=== PATIENT | female | born 1945 | race Caucasian/White ===

== ENCOUNTER 2017-04-21 11:15 | Emergency (ER) | payer MEDICARE ==
[2017-04-21 11:24] VITALS: BP 132/89
[2017-04-21] MEDS ORDERED: PROPARACAINE 0.5% OPHTH DROPS 15 ML EACHEYE STA (12:33)
[2017-04-21] MEDS ORDERED: PROPARACAINE 0.5% OPHTH DROPS 15 ML ONE (12:42)
--- NOTE | 2017-04-21 13:10 | ED Physician Documentation ---
PD HPI HEENT - Stated complaint Stated Complaint: L EYE PX - Chief complaint Chief Complaint: Heent - History obtained from History obtained from: Patient, Family - History of Present Illness Timing - onset: Last night Timing - duration: Days (1) Timing - details: Gradual onset Pain level max: 3 Pain level now: 3 Location: Other (L eye) Improves: Nothing Worsens: Other (light) Associated symptoms: No: Fever, Congestion, Rhinorrhea, Trismus, Unable to swallow, Swollen nodes, Facial swelling - Additional information Additional information: states hit in the L eye with debris under a ladder yesterday. Does not wear contact lenses. 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 HEENT: Cataracts - Present Medications Home Medications: Ambulatory Orders Medication Instructions Recorded Confirmed No Known Home Medications [No 04/21/17 04/21/17 Known Home Medications] - Allergies Allergies/Adverse Reactions: Allergies Allergy/AdvReac Type Severity Reaction Status Date / Time Penicillins Allergy Unknown Verified 04/21/17 11:24 - Social History Does the pt smoke?: No Smoking Status: Never smoker PD ED PE NORMAL - Vitals Vital signs reviewed: Yes - General General: Alert and oriented X 3, No acute distress - Derm Derm: Warm and dry - Neuro Neuro: Alert and oriented X 3 - Psych Psych: Normal mood, Normal affect PD ED PE EXPANDED - HEENT HEENT Visual: 1 - abrasion (punctace fluoroscein uptake. otherwise normal exam.) Results - Vitals Vitals: Vital Signs - 24 hr 04/21/17 11:22 Temperature 36.2 C L Heart Rate 71 Respiratory 17 Rate Blood Pressure 132/89 H O2 Saturation 98 Oxygen O2 Source Room air PD MEDICAL DECISION MAKING - ED course Complexity details: considered differential, d/w patient ED course: Patient is a 71-year-old female presents to the emergency department with a left eye corneal abrasion. She is currently on Polytrim ophthalmic for her preop for cataract surgery, will increase this to 1 drop every 3 hours while awake. 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 Patient counseled regarding signs and symptoms for which I believe and urgent re-evaluation would be necessary. Patient with good understanding of and agreement to plan and is comfortable going home at this time This document was made in part using voice recognition software. While efforts are made to proofread this document, sound alike and grammatical errors may occur. Departure - Departure Disposition: 01 Home, Self Care Clinical Impression: Corneal abrasion Qualifiers: Encounter type: initial encounter Laterality: left Qualified Code(s): S05.02XA - Injury of conjunctiva and corneal abrasion without foreign body, left eye, initial encounter Condition: Good Instructions: ED Eye Injury Corneal Abrasion Follow-Up: Leonela Villela MD [Primary Care Provider] - Comments: Follow up with Dr. Moran's office tomorrow to find out about your surgery. Increase the polytrim to 1 drop every 3 hours while awake. Return if you worsen.
== END 2017-04-21 13:31 | disposition home or self-care (01) ==
LOC: ED 11:15
DX: S05.02XA Injury of conjunctiva and corneal abrasion without foreign body, left eye, initial encounter (principal); X58.XXXA Exposure to other specified factors, initial encounter
CPT/HCPCS: 99283; J3490

== ENCOUNTER 2019-01-12 13:16 | Emergency (ER) | payer MEDICARE ==
[2019-01-12 13:46] LABS: BASOPHILS # (AUTO) 0.1 10^3/uL (0.0-0.1); BASOPHILS % (AUTO) 0.6 %; EOSINOPHILS # (AUTO) 0.3 10^3/uL (0.0-0.7); EOSINOPHILS % (AUTO) 2.1 %; HGB - HEMOGLOBIN 14.1 g/dL (12.0-16.0); LYMPHOCYTES # (AUTO) 1.4 10^3/uL (1.5-3.5); LYMPHOCYTES % (AUTO) 8.5 %; MEAN CORPUSCULAR HGB CONC 32.1 g/dL (32.0-36.0); MEAN CORPUSCULAR VOLUME 99.8 fL (81.0-99.0); MEAN PLATELET VOLUME 9.6 fL (7.9-10.8); MONOCYTES # (AUTO) 1.2 10^3/uL (0.0-1.0); MONOCYTES % (AUTO) 7.8 %; NEUTROPHILS # (AUTO) 12.7 10^3/uL (1.5-6.6); NEUTROPHILS % (AUTO) 80.4 %; PLT - PLATELET COUNT 377 10^3/uL (130-450); RED CELL DISTRIBUTION WIDTH 13.2 % (12.0-15.0); WHITE BLOOD COUNT 15.9 x10^3/uL (4.8-10.8)
[2019-01-12 13:59] LABS: ALBUMIN 4.1 g/dL (3.2-5.5); BILIRUBIN,TOTAL 0.5 mg/dL (0.2-1.0); CALCIUM 10.1 mg/dL (8.5-10.3); CREATININE 0.8 mg/dL (0.4-1.0); TOTAL PROTEIN 8.3 g/dL (6.7-8.2)
--- NOTE | 2019-01-12 14:02 | XRAY Report ---
Reason: chest pain Procedure Date: 01/12/2019 Accession Number: [id number] / [id number] Procedure: XR - Chest 1 View X-Ray CPT Code: 57530 FULL RESULT: EXAM: CHEST RADIOGRAPHY EXAM DATE: 01/12/2019 01:47 PM. CLINICAL HISTORY: Chest pain. Shortness of breath. COMPARISON: None. TECHNIQUE: 1 view. FINDINGS: Lungs/Pleura: No focal consolidation evident. There is mild diffuse bilateral interstitial prominence. There is an 11 mm nodular opacity in the right suprahilar region projecting over the right posterior seventh rib. No pleural effusion. No pneumothorax. Mediastinum: Within exam limitations, the cardiomediastinal contour is normal. There is a moderate hiatal hernia with an air-fluid level. Other: No acute osseous abnormality. IMPRESSION: 1. Mild diffuse bilateral interstitial prominence may be due to mild interstitial edema and/or chronic lung changes. 2. There is a moderate hiatal hernia with an air-fluid level. 3. There is an 11 mm nodular opacity projecting over the right suprahilar region. This may represent a pulmonary nodule or artifact from superimposition of vascular structures, interstitial opacities, and a posterior rib. Recommend follow-up with noncontrast CT of the chest for further evaluation. [facility]
--- NOTE | 2019-01-12 14:15 | ED Physician Documentation ---
History of Present Illness - Stated complaint Stated Complaint: CHEST PX - Chief complaint Chief Complaint: Cardiac - History obtained from History obtained from: Patient - History of Present Illness Timing: Yesterday - Additonal information Additional information: Patient is a 73-year-old female presenting with upper back and chest discomfort that began yesterday after heavy lifting. Patient reports soreness, particularly with movement. She denies other significant chest pain, pleuritic chest pain, but does feel that she is having difficulty taking a big breath.Patient denies productive cough, fever, lightheadedness, dizziness, syncope, as well as nausea, vomiting, abdominal pain, urinary changes, stool changes, recent travel, or significant leg swelling or pain. Patient does take a baby aspirin daily. No other improving or worsening factors noted. Review of Systems Constitutional: denies: Fever Cardiac: reports: Chest pain / pressure. denies: Pedal edema, Calf pain Respiratory: reports: Dyspnea. 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 HEENT: Cataracts - Present Medications Home Medications: Ambulatory Orders Medication Instructions Recorded Confirmed No Known Home Medications 04/21/17 04/21/17 - Allergies Allergies/Adverse Reactions: Allergies Allergy/AdvReac Type Severity Reaction Status Date / Time Penicillins Allergy Unknown Verified 01/12/19 13:23 - Social History Does the pt smoke?: No Smoking Status: Never smoker PD ED PE NORMAL - Vitals Vital signs reviewed: Yes - General General: Alert and oriented X 3, No acute distress, Well developed/nourished - HEENT HEENT: Atraumatic, Moist mucous membranes - Neck Neck: Supple, no meningeal sign - Cardiac Cardiac: RRR, No murmur - Respiratory Respiratory: No respiratory distress, Clear bilaterally - Abdomen Abdomen: Soft, Non tender, Non distended - Derm Derm: Normal color, Warm and dry, No rash - Extremities Extremities: No deformity, No tenderness to palpate, No edema - Neuro Neuro: Alert and oriented X 3, No motor deficit, No sensory deficit - Psych Psych: Normal mood, Normal affect Results - Vitals Vitals: Vital Signs - 24 hr 01/12/19 01/12/19 01/12/19 13:21 14:47 14:51 Temperature 36.4 C L 37.9 C H Heart Rate 93 98 Respiratory 20 20 Rate Blood Pressure 160/96 H 131/81 H Blood Pressure 131/81 H [Left] O2 Saturation 97 98 01/12/19 15:19 Temperature 37.6 C H Heart Rate 94 Respiratory 24 Rate Blood Pressure 135/77 H Blood Pressure [Left] O2 Saturation 98 Oxygen O2 Source Room air - EKG (time done) 1319 Rate: Rate (enter#) (88) Rhythm: NSR Ischemia: Non specific changes - Labs Labs: Laboratory Tests 01/12/19 01/12/19 01/12/19 13:39 13:39 13:39 WBC 15.9 H RBC 4.40 Hgb 14.1 Hct 43.9 MCV 99.8 H MCH 32.0 H MCHC 32.1 RDW 13.2 Plt Count 377 MPV 9.6 Neut # (Auto) 12.7 H Lymph # (Auto) 1.4 L [place] # (Auto) 1.2 H Eos # (Auto) 0.3 Baso # (Auto) 0.1 Absolute Nucleated RBC 0.00 Nucleated RBC % 0.0 Sodium 141 Potassium 3.9 Chloride 102 Carbon Dioxide 26 Anion Gap 13.0 BUN 16 Creatinine 0.8 Estimated GFR (MDRD) 70 L Glucose 129 H Calcium 10.1 Total Bilirubin 0.5 AST 29 ALT 21 Alkaline Phosphatase 130 H Troponin I High Sens 4.4 Total Protein 8.3 H Albumin 4.1 Globulin 4.2 Albumin/Globulin Ratio 1.0 Lipase 31 PD MEDICAL DECISION MAKING - ED course Complexity details: reviewed results, re-evaluated patient, considered differential, d/w patient, d/w family ED course: Feel the patient's discomfort is likely musculoskeletal in nature given mechanism and description, as well as benign visible exam. EKG and cardiac enzymes did not reflect ischemia or arrhythmia. Chest x-ray did not find evidence of pulmonary edema, pneumonia, or other acute findings. CTA did not reflect evidence of PE. Patient provided with radiology read and disc containing incidental findings noted. Remainder of screening lab work was rather unremarkable. At this time, feel that patient is safe to discharge home. Discussed results recommendations, return precautions, appropriate follow-up. Patient voiced understanding and is comfortable with discharge plan. Departure - Departure Disposition: 01 Home, Self Care Clinical Impression: Chest wall pain Condition: Good Instructions: ED Strain Chest Wall Follow-Up: Leonela Villela MD [Primary Care Provider] - Within 3 Days Comments: Recommend stretching, massage, heat application for sore muscles, as well as ibuprofen/Tylenol as needed. Please follow-up with primary care physician in next 2 to 3 days and return to ED sooner if experience worsening symptoms or have other concerns.
[2019-01-12] MEDS ORDERED: IOVERSOL 320 100 ML VIAL IVP ONE ×2 (14:43→16:57)
--- NOTE | 2019-01-12 15:43 | CT Report ---
Reason: eval for PE Procedure Date: 01/12/2019 Accession Number: [id number] / [id number] Procedure: CT - ANGIO CHEST W/WO CPT Code: FULL RESULT: EXAM: CT ANGIOGRAM CHEST EXAM DATE: 01/12/2019 03:19 PM. CLINICAL HISTORY: Chest pain and back pain COMPARISON: None. TECHNIQUE: Routine helical imaging was performed through the chest in the pulmonary arterial phase. IV Contrast: OPTI 320 80ML. Reconstructions: Coronal 3-D MIP reconstructions.Sagittal and coronal. In accordance with CT protocol optimization, one or more of the following dose reduction techniques were utilized for this exam: automated exposure control, adjustment of mA and/or KV based on patient size, or use of iterative reconstructive technique. FINDINGS: Pulmonary Arteries: Diagnostic quality: Adequate through the segmental arteries. No evidence for acute or chronic pulmonary emboli. Main pulmonary artery size is normal. Lungs/Pleura: There are moderate peripheral reticular opacities. There is moderate mosaic attenuation with geographic mild by basilar air trapping. There is no consolidation or pleural effusion. Negative for pneumothorax. No pleural effusion. There are calcified granulomas in the left lower lobe. Mediastinum: There is a moderate sized hiatal hernia. There are borderline sized mediastinal and hilar lymph nodes. Thoracic Aorta: No aneurysm or dissection. Upper Abdomen: Unremarkable. Other: Thoracic spine appears in satisfactory alignment without evidence of fracture. IMPRESSION: 1. Negative for acute pulmonary embolism. 2. Chronic pulmonary disease with evidence of bibasilar scarring or fibrosis. Features suggestive of chronic hypersensitivity pneumonitis. 3. Moderate sized hiatal hernia. RAD[facility]
[2019-01-12 16:35] VITALS: BP 132/76
== END 2019-01-12 16:43 | disposition home or self-care (01) ==
LOC: ED 13:16
DX: R07.89 Other chest pain (principal)
CPT/HCPCS: 36415; 71045; 71275; 80053; 83690; 84484; 85025; 93005; 99284; Q9967

== ENCOUNTER 2019-01-30 09:31 | Outpatient (CLI) | payer MEDICARE ==
[2019-01-30 10:02] LABS: CALCIUM 9.1 mg/dL (8.5-10.3); CREATININE 1.3 mg/dL (0.4-1.0)
== END 2019-01-30 09:32 | disposition home or self-care (01) ==
LOC: LAB 09:31
PROVIDERS: ATTEND Internal Medicine Pulmonary Disease
DX: N28.9 Disorder of kidney and ureter, unspecified (principal)
CPT/HCPCS: 36415; 80048